=== PATIENT | male | born 1965 | race African-American/Black ===

== ENCOUNTER 2020-03-04 23:59 | Emergency (ER) | payer OTHER ==
[~2020-03-04] VITALS: Ht 170.2 cm; Wt 86.2 kg
[2020-03-05 00:02] VITALS: BP 161/99
[2020-03-05] MEDS ORDERED: AUGMENTIN 875-1 EACH PO (00:35)
== END 2020-03-05 00:55 | disposition home or self-care (01) ==
LOC: ER 23:59
DX: S01.85XA Open bite of other part of head, initial encounter (principal); W50.3XXA Accidental bite by another person, initial encounter; Y93.89 Activity, other specified; Y92.89 Other specified places as the place of occurrence of the external cause; Y99.8 Other external cause status

== ENCOUNTER → 2021-03-23 | Emergency (ER) | payer OTHER ==
[~2021-03-23] VITALS: Ht 177.8 cm; Wt 72.6 kg
[~2021-03-23] MED LIST: AUGMENTIN 875-1 EACH PO
--- NOTE | ~2021-03-23 | EMS ---
[facility] [address] [place] [address] EMS Patient Care Report Name: BEL BLANCO Room #: REG CHELSEA Nieves#: [id number] Admission: 03/23/21 Attend Phys: Discharge: Date of : 69 Report #: [id number] THIS REPORT FOR: //name// Report Transmitted: 03/23/2021 12:52 EMS Care Summary [place], [place]/[facility] Incident [id number] @ 03/23/2021 12:22 Incident Location [address] [place] [id number] Patient BEL BLANCO Male, 55 Years 1965 Patient Address [address] [place], [place] [id number] Patient History None Reported, Patient Allergies No known allergies, Patient Medications None Reported, Chief Complaint AMS Disposition Transported No Lights/[place] Dispatch Reason Overdose/Poisoning/Ingestion Transported To [facility] Narrative RESPONDED TO OVERDOSE AT HOME WITH PD ON SCENE. UPON [place] PD STANDING NEXT TO PT WHO IS SLEEPING OUTSIDE ON THE DRIVEWAY OF SOMEONE ELSE'S HOME. PT IS AMS AND VERY SWEATY. UNKNOWN HOW LONG PT HAS BEEN LAYING ON PAVEMENT BUT WEATHER IS ABOUT 95 DEGREES OUTSIDE. PT DOES NOT CLEARLY ANSWER QUESTIONS WHEN ASKED ABOUT [facility] [address] [place] [address] EMS Patient Care Report Name: BEL BLANCO Room #: KATE Nieves#: [id number] Admission: 03/23/21 Attend Phys: Discharge: Date of : 69 Report #: [id number] ANY ALCOHOL CONSUMPTION BUT IT IS SUSPECTED. PT TEAM LIFTED BY [employer] ASSISTANT TO COT. VITALS, IV AND 3 LEAD OBTAINED. PT TRANSPORTED TO [facility] WITH NO CHANGES. PT TEAM LIFTED TO BED AND HANDRAILS UP REPORT GIVEN TO NURSE. Initial Vitals @12:44P: 140,CO: 11,SpO2: 97, @12:58P: 132, @12:45P: 140,CO: 9,SpO2: 99, @12:57P: 132, @12:51P: 136,BP: 118/85, @12:46P: 140,R: 16,BP: 126/85,SpO2: 99, @12:55P: 131, @12:55P: 131,R: 18,BP: 145/103,Pain: 0/10,GCS: 14,Glucose: 127,SpO2: 98,Revised Trauma: 12, Assessments @12:52MENTAL:Confused,Time Oriented,Person Oriented,SKIN:Diaphoresis,HEENT:Head/Face: No Abnormalities,Eyes: No Abnormalities,Neck/Airway: No Abnormalities,LUNG SOUNDS:General: No Abnormalities,Left Upper: No Abnormalities,Right Upper: No Abnormalities,Left Lower: No Abnormalities,Right Lower: No Abnormalities,ABDOMEN:General: No Abnormalities,Left Upper: No Abnormalities,Right Upper: No Abnormalities,Left Lower: No Abnormalities,Right Lower: No Abnormalities,PELVIS//GI:No Abnormalities,EXTREMITIES:Left Arm: No Abnormalities,Right Arm: No Abnormalities,Left Leg: No Abnormalities,Right Leg: No Abnormalities,PULSE:Radial: 2+ Normal,NEURO:Slurred Speech, Impression Altered Mental Status Procedures @12:40ALS AssessmentResponse: UnchangedSucceeded@12:48Saline Lock 5cc (20 ga) Site: Antecubital-LeftResponse: UnchangedSucceeded@12:503-Lead ECGResponse: UnchangedSucceeded Timeline 12:21,Call Received 12:21,Dispatch Notified 12:22,Dispatched 12:22,En Route 12:38,On Scene 12:40,At Patient 12:40,ALS Assessment,Response: UnchangedSucceeded, 12:44,BP: / M,PULSE: 140,RR: R,SPO2: 97 Ox,ETCO2: ,BG: ,PAIN: ,GCS: , 12:45,BP: / M,PULSE: 140,RR: R,SPO2: 99 Ox,ETCO2: ,BG: ,PAIN: ,GCS: , 12:46,BP: 126/85 M,PULSE: 140,RR: 16 R,SPO2: 99 Ox,ETCO2: ,BG: ,PAIN: ,GCS: , [facility] [address] [place] [address] EMS Patient Care Report Name: BEL BLANCO Room #: KATE Nieves#: [id number] Admission: 03/23/21 Attend Phys: Discharge: Date of : 69 Report #: [id number] 12:48,Saline Lock 5cc 20 ga Site: Antecubital-Left,Response: UnchangedSucceeded, 12:50,3-Lead ECG,Response: UnchangedSucceeded, 12:51,BP: 118/85 M,PULSE: 136,RR: R,SPO2: Ox,ETCO2: ,BG: ,PAIN: ,GCS: , 12:52,Depart Scene 12:55,BP: 145/103 M,PULSE: 131,RR: 18 R,SPO2: 98 Ox,ETCO2: ,B,PAIN: 0,GCS: 14, 12:55,BP: / M,PULSE: 131,RR: R,SPO2: Ox,ETCO2: ,BG: ,PAIN: ,GCS: , 12:57,BP: / M,PULSE: 132,RR: R,SPO2: Ox,ETCO2: ,BG: ,PAIN: ,GCS: , 12:58,BP: / M,PULSE: 132,RR: R,SPO2: Ox,ETCO2: ,BG: ,PAIN: ,GCS: , 13:04,At Destination 13:19,Call Closed Disclaimer [email or web address] Copyright 2020 [employer] This EMS Care Summary contains data elements from the applicable legal record (which may be displayed differently). It is designed to provide pertinent information for the following purposes: continuity of care, clinical quality, and state data reporting. The complete legal record is available to ED staff and administrators of the receiving hospital in [employer] Patient Tracker. All data is provided "as is."
[2021-03-23 13:52] LABS: BASOPHILS 0.7 % (0.0-2.0); EOSINOPHILS 0.6 % (0.0-3.0); HEMATOCRIT 49.6 % (42.0-52.0); HEMOGLOBIN 15.9 gm/dL (14.0-18.0); LYMPHOCYTES 14.3 % (24.0-44.0); MCH 26.8 pg (26.0-34.0); MCHC 32.1 g/dL (28.0-37.0); MCV 83.3 fL (80.0-100.0); MONOCYTES 15.6 % (1.0-8.0); PLATELET COUNT 286 thou/uL (150-400); POLYS 68.8 % (36.0-66.0); RBC 5.95 mil/uL (4.50-6.00); RDW 15.7 % (10.5-14.5); WBC 10.2 thou/uL (4.0-11.0)
[2021-03-23 14:00] LABS: CALCIUM 9.8 mg/dL (8.5-10.1); CREATININE 1.2 mg/dL (0.7-1.3); POTASSIUM 4.4 mmol/L (3.5-5.1)
[2021-03-23 14:06] LABS: MAGNESIUM 2.3 mg/dL (1.8-2.4)
[2021-03-23 14:25] LABS: AMP/METHAMP POSITIVE (Negative); BARBITURATES Negative (Negative); BENZODIAZEPINES Negative (Negative); COCAINE Negative (Negative); METHADONE Negative (Negative); OPIATES Negative (Negative); PCP POSITIVE (Negative)
== END ==
LOC: ER 13:08
PROVIDERS: Emergency Medicine
DX: R41.82 Altered mental status, unspecified (principal); I10 Essential (primary) hypertension